=== PATIENT | female | born 1955 | race Caucasian/White ===

== ENCOUNTER 2020-08-26 09:47 | Day surgery (SDC) | payer MEDICARE ==
[2020-08-23 11:29] VITALS: BMI 34.2
--- NOTE | 2020-08-25 22:50 | HP ---
HISTORY AND PHYSICAL CHIEF COMPLAINT: Sjogren's syndrome. HISTORY OF PRESENT ILLNESS: This patient is a 64-year-old female who was recently seen in my office complaining of having dry eyes, dry mouth, and dry mucous membranes in her nose. The patient states that in the past she has been diagnosed as having Sjogren's syndrome by one physician, however, another physician told her that she did have this disease. She has not had any testing for this. I suggested to her that a lip biopsy could be done to confirm whether or not she has Sjogren syndrome and she decided to proceed with this. PAST MEDICAL HISTORY: Past medical history reveals that she has allergies to PENICILLIN and to ASPIRIN. Current medications include Effexor, Flexeril, Restasis, Synthroid, cevimeline, simvastatin, Zyrtec and Vicodin. REVIEW OF SYSTEMS: Cardiovascular is negative. Respiratory is negative. Gastrointestinal is positive for GERD, gastroesophageal reflux disorder. Metabolic endocrine is positive for hypothyroidism and hypercholesterolemia. Musculoskeletal system is positive for osteoarthritis and fibromyalgia. The remainder of the review of systems is unremarkable. PREVIOUS SURGERIES: Previous surgeries include an appendectomy, bilateral cataract surgery, skin cancer on the left waist. She is 2 para, 2 , 0 , 0 miscarriage. She has also had arthroscopic surgery on the left knee. PHYSICAL EXAMINATION: This patient is a pleasant 64-year-old female who is alert and cooperative. HEENT EXAMINATION: Patient is normocephalic. Tympanic membranes are normal. Middle ear space is free of any fluid or infection. Pupils equal, round, react to light and accommodation. Extraocular movements within normal limits. Intranasal examination reveals moderate septal deviation with a very slight amount of mucus on the mucous membrane draining down the posterior pharynx and oropharynx reveals the mucous membranes appear to be quite dry. Cranial nerves 2 through 12 and the remainder of the head and neck exam is unremarkable. CHEST/CARDIOVASCULAR: Both lung obando are clear to percussion and auscultation. Patient is in regular sinus rhythm. S1, S2 are present without any murmurs, S3s or S4s. Peripheral pulses are bilaterally symmetrical and within normal limits. ABDOMEN: There is no evidence any masses, megaly or tenderness. The abdomen is soft. Skin is unremarkable. Musculoskeletal and neurological are within normal limits. RECTAL EXAM: The rectal exam is deferred at this time because the patient has this done on a regular basis at her family physician's office. The remainder of physical exam is unremarkable. IMPRESSION: Sjogren's syndrome. PLAN: The patient is scheduled to undergo a lip biopsy under general anesthesia or IV sedation with MAC? in the a.m. ATTENTION RNS IN THE PRE-SURGICAL AREA: I have not ordered any pre-surgical prophylactic antibiotics for this patient. If the pharmacy department sends any pre- surgical prophylactic antibiotics to the pre-surgical area for this patient, please return that medication to the pharmacy, cancel that order, and make sure that the patient's account is credited appropriately. I have discussed the risks, benefits and alternative therapies for the above-mentioned procedure and for both sedation/analgesia as well as necessary blood product administration, if indicated, as they pertain to this patient. The patient has indicated his or her understanding and acceptance of the risks and procedures discussed. MMJEANNIE / TAMMIEN: [id number] /
[~2020-08-26 09:47] MED LIST: DEXAMETHASONE SOD PHOSPHATE 10 MG/ML 1 ML VIAL IV ONE; LACTATED RINGERS 1,000 ML IV SCH; LIDOCAINE 1% (10MG/ML) FOR IV START INTRADERMA PRN; MIDAZOLAM 2 MG/2 ML VIAL IV PRN; ONDANSETRON 4 MG/2 ML VIAL IVP ONE; Pre Op ABX Message 1 EACH MISC MISCELLANE ONE
[2020-08-26] MEDS ORDERED: fentaNYL (PF) 50 MCG/ML 2 ML AMP ONE (11:32)
[2020-08-26] MEDS ORDERED: DEXAMETHASONE SOD PHOSPHATE 10 MG/ML 1 ML VIAL ONE (11:32)
[2020-08-26] MEDS ORDERED: SUCCINYLCHOLINE CHLORIDE 100 MG/5 ML SYR IV ONE (11:32)
[2020-08-26] MEDS ORDERED: PROPOFOL 10 MG/ML 20 ML VIAL IV ONE (11:32)
[2020-08-26] MEDS ORDERED: MIDAZOLAM 2 MG/2 ML VIAL ONE (11:32)
[2020-08-26 12:43] VITALS: TEMP 97.1
[2020-08-26 12:50] VITALS: RESP 16
[2020-08-26] MEDS: HYDROmorphone 0.5 MG/0.5 ML SYRINGE IVP PRN ×2 (13:00→13:12)
[2020-08-26] MEDS ORDERED: LACTATED RINGERS 1,000 ML IV ONE (13:28)
[2020-08-26] MEDS ORDERED: HYDROcodone/APAP 10-325MG 1 EACH TAB PO ONE (13:50)
[2020-08-26 14:23] VITALS: BP 142/84; PULSE 100
--- NOTE | 2020-08-26 22:42 | OP ---
OPERATIVE REPORT DATE OF SURGERY: 08/26/2020 PREOPERATIVE DIAGNOSIS: Sjogren's syndrome. POSTOPERATIVE DIAGNOSIS: Sjogren's syndrome. Final pathology pending. ANESTHESIA: General. OPERATIVE PROCEDURE: Deep lower lip biopsy OPERATING SURGEON: Dr. Nico Hogue. COMPLICATIONS: None. OPERATIVE PROCEDURE DESCRIPTION: The patient was placed on the operating table in supine position, and after uneventful induction endotracheal intubation, satisfactory general anesthesia was obtained. Next, the patient's lower lip was inspected. The area to be biopsied was located in a region just lateral to the midline of the lower lip. Next, using a #15 scalpel, an incision was made in an elliptical fashion going through mucous membrane, subcutaneous tissue down to the level of the muscular layer. This strip of tissue was then excised completely and sent to Pathology in formalin. Several remnant pieces of this strip were still located in the wound defect, and these were excised by sharp dissection and sent along with the main pathology specimen. Hemostasis was obtained using a combination of 4-0 ties and electrocautery. The wound defect was closed in a single layer using a combination of 4-0 rapid-absorbing Vicryl in interrupted buried fashion along with 4-0 chromic suture in an interrupted buried fashion. No local anesthesia was used to reduce risk of the patient accidentally biting her lower lip. Estimated blood loss was less than 1 mL. At this point the procedure was terminated. The patient tolerated the procedure well and was returned to the recovery room in satisfactory condition. Final pathology is pending. MMODL / IJN: [id number] /
== END 2020-08-26 14:27 | disposition home or self-care (01) ==
LOC: OR 09:47
PROVIDERS: ATTEND Otolaryngology
DX: M35.00 Sjogren syndrome, unspecified (principal); K21.9 Gastro-esophageal reflux disease without esophagitis; E03.9 Hypothyroidism, unspecified; E78.00 Pure hypercholesterolemia, unspecified; M19.90 Unspecified osteoarthritis, unspecified site; M79.7 Fibromyalgia; E78.5 Hyperlipidemia, unspecified; F41.9 Anxiety disorder, unspecified; F32.9 Major depressive disorder, single episode, unspecified; M81.0 Age-related osteoporosis without current pathological fracture; Z88.0 Allergy status to penicillin; Z88.6 Allergy status to analgesic agent; Z91.09 Other allergy status, other than to drugs and biological substances; Z91.012 Allergy to eggs; Z79.899 Other long term (current) drug therapy; Z79.890 Hormone replacement therapy; Z79.891 Long term (current) use of opiate analgesic; Z90.49 Acquired absence of other specified parts of digestive tract; Z98.41 Cataract extraction status, right eye; Z98.42 Cataract extraction status, left eye; Z85.828 Personal history of other malignant neoplasm of skin; Z98.890 Other specified postprocedural states
CPT/HCPCS: 88305; 40490; J2250; J1100; J2405; J3010; J0330; J2704; J1170

== ENCOUNTER → 2020-08-27 | Outpatient (CLI) | payer MEDICARE ==
[~2020-08-27] MED LIST changes: -DEXAMETHASONE SOD PHOSPHATE 10 MG/ML 1 ML VIAL IV ONE; +HYDROcodone/APAP 10-325MG 1 EACH TAB ONE; -LACTATED RINGERS 1,000 ML IV SCH; -LIDOCAINE 1% (10MG/ML) FOR IV START INTRADERMA PRN; -MIDAZOLAM 2 MG/2 ML VIAL IV PRN; -ONDANSETRON 4 MG/2 ML VIAL IVP ONE; -Pre Op ABX Message 1 EACH MISC MISCELLANE ONE
--- NOTE | 2020-08-27 11:49 | FL ---
EXAMINATION TYPE: FL barium swallow w video DATE OF EXAM: 08/27/2020 COMPARISON: NONE HISTORY: Aspiration, horse voice TECHNIQUE: Fluoroscopy. FINDINGS: Fluoroscopic guidance was provided for the procedure performed in conjunction with the [facility] pathology department. Please see complete report forthcoming from the Speech Pathology departmen t. Various consistencies from thin liquid to solids were administered. Fluoroscopy time 55 seconds. Number of images: 0. No aspiration or penetration was evident. No significant pooling was observed in the vallecula. There was normal propulsion of the bolus. IMPRESSION: 1. Normal modified barium swallow.
== END | disposition home or self-care (01) ==
LOC: RADFLMAIN 10:53
PROVIDERS: ATTEND Otolaryngology
DX: R05 Cough (principal); T17.810A Gastric contents in other parts of respiratory tract causing asphyxiation, initial encounter; Z88.0 Allergy status to penicillin; Z88.6 Allergy status to analgesic agent
CPT/HCPCS: 74230

== ENCOUNTER 2022-04-13 07:32 | Day surgery (SDC) | payer MEDICARE ==
[~2022-04-13 07:32] MED LIST changes: +ACETAMINOPHEN TAB 500 MG TAB PO PRN; +DEXAMETHASONE SOD PHOSPHATE 4 MG/ML 1 ML VIAL IV ONE; +HEPARIN SODIUM,PORCINE/PF 5,000 UNIT/0.5 ML SYRINGE SQ PRN; -HYDROcodone/APAP 10-325MG 1 EACH TAB ONE; +LIDOCAINE 1% (10MG/ML) FOR IV START INTRADERMA PRN; +ONDANSETRON 4 MG/2 ML VIAL IVP ONE
--- NOTE | 2022-04-13 08:04 | P.GSHP ---
History of Present Illness H&P Date: 04/13/22 Chief Complaint: Chronic cholecystitis 66-year-old female seen in early February. Patient with complaints of epigastric and chest pain. Some radiation to the back. Seems to be aggravated by certain foods. Ultrasound shows sludge. Recent cardiac workup negative. Past Medical History Past Medical History: Cancer, Fibromyalgia, Hyperlipidemia, Osteoarthritis (OA), Thyroid Disorder Additional Past Medical History / Comment(s): sjogrens, osteoporosis, hx skin cancer History of Any Multi-Drug Resistant Organisms: None Reported Past Surgical History: Appendectomy, Hysterectomy, Orthopedic Surgery Additional Past Surgical History / Comment(s): arthroscopy left knee , skin cancer removed from abdomen, D&C, Hemorrhoidectomy, uday cataracts Past Anesthesia/Blood Transfusion Reactions: No Reported Reaction Past Psychological History: Anxiety, Depression Smoking Status: Former smoker Past Alcohol Use History: None Reported Additional Past Alcohol Use History / Comment(s): smoked for 5 yrs , quit smoking age 23 Past Drug Use History: None Reported Additional Drug Use History / Comment(s): CBD topically - Past Family History Mother Family Medical History: Cancer Medications and Allergies Home Medications Medication Instructions Recorded Confirmed Type Cevimeline HCl [Evoxac] 30 mg PO BID 05/17/14 04/09/22 History Cyclobenzaprine [Flexeril] 10 mg PO HS 05/17/14 04/09/22 History Fexofenadine HCl [Sonya Allergy] 180 mg PO DAILY 05/17/14 04/09/22 History cycloSPORINE [Restasis] 1 applicator BOTH EYES BID 05/17/14 04/09/22 History Meclizine [Antivert] 25 mg PO TID PRN 08/23/20 04/09/22 History Simvastatin [Zocor] 40 mg PO HS 08/23/20 04/09/22 History Cholecalciferol [Vitamin D3 (25 50 mcg PO BID 12/18/21 04/09/22 History Mcg = 1000 Iu)] Multivitamins, Thera [Multivitamin 1 tab PO DAILY 12/18/21 04/09/22 History (formulary)] Venlafaxine HCl ER [Effexor Xr] 150 mg PO BID 12/18/21 04/09/22 History Levothyroxine Sodium 125 mcg PO HS 04/09/22 04/09/22 History Allergies Allergy/AdvReac Type Severity Reaction Status Date / Time adhesive tape AdvReac Rash/Hives Verified 04/09/22 14:08 aspirin AdvReac Abdominal Verified 04/09/22 14:08 Pain egg AdvReac Abdominal Verified 04/09/22 14:08 Pain Penicillins AdvReac Swelling Verified 04/09/22 14:08 Surgical - Exam Vital Signs Temp Pulse Resp BP Pulse Ox 97.2 F L 82 16 122/69 93 L 04/13/22 07:50 04/13/22 07:50 04/13/22 07:50 04/13/22 07:50 04/13/22 07:50 Physical exam: General: Well-developed, well-nourished HEENT: Normocephalic, sclerae nonicteric Abdomen: Nontender, nondistended Extremities: No edema Neuro: Alert and oriented Assessment and Plan (1) Chronic cholecystitis Narrative/Plan: Female with chronic cholecystitis. We'll proceed with laparoscopic, possible open cholecystectomy at this time. Risks of bleeding, infection, bile leak, bile duct injury, retained common bile duct stone, trocar injury, conversion to an open procedure, hernia, anesthesia related complications were reviewed. The patient understands and wishes to proceed. Current Visit: Yes Status: Acute Code(s): K81.1 - CHRONIC CHOLECYSTITIS SNOMED Code(s): 84791784
[2022-04-13 08:15] LABS: Basophils # (A) 0.1 k/uL (0-0.2); Basophils % (A) 1 %; Eosinophils # (A) 0.3 k/uL (0-0.7); Eosinophils % (A) 3 %; HCT 43.7 % (34.0-46.0); HGB 13.9 gm/dL (11.4-16.0); Lymphocytes # (A) 1.8 k/uL (1.0-4.8); Lymphocytes % (A) 23 %; MCH 28.8 pg (25.0-35.0); MCHC 31.9 g/dL (31.0-37.0); MCV 90.3 fL (80.0-100.0); Mean Platelet Volume 7.4; Monocytes # (A) 0.4 k/uL (0-1.0); Monocytes % (A) 5 %; Neutrophils # (A) 5.1 k/uL (1.3-7.7); Neutrophils % (A) 65 %; Platelet Count 308 k/uL (150-450); RBC 4.84 m/uL (3.80-5.40); RDW 13.5 % (11.5-15.5); WBC 7.9 k/uL (3.8-10.6)
[2022-04-13] MEDS: LACTATED RINGERS 1,000 ML IV SCH ×2 (08:17→11:04)
[2022-04-13 08:34] LABS: ALT 23 U/L (4-34); AST 29 U/L (14-36); African American GFR (CKD) >90 (>60 ml/min/1.73 sqM); Albumin 4.3 g/dL (3.5-5.0); Alkaline Phosphatase 60 U/L (38-126); Anion Gap 9 mmol/L; Blood Urea Nitrogen 14 mg/dL (7-17); Calcium 9.1 mg/dL (8.4-10.2); Carbon Dioxide 26 mmol/L (22-30); Chloride 106 mmol/L (98-107); Glucose 116 mg/dL (74-99); Non-African American GFR(CKD) 78 (>60 ml/min/1.73 sqM); Sodium 141 mmol/L (137-145); Total Bilirubin 0.6 mg/dL (0.2-1.3); Total Protein 6.8 g/dL (6.3-8.2)
[2022-04-13] MEDS ORDERED: GLYCOPYRROLATE 0.2 MG/ML 2 ML VIAL ONE (09:05)
[2022-04-13] MEDS ORDERED: SUGAMMADEX SODIUM 200 MG/2 ML SDV IV ONE (09:05)
[2022-04-13] MEDS ORDERED: LIDOCAINE 2% INJ 20 MG/ML (2 ML VIAL) ONE (09:05)
[2022-04-13] MEDS ORDERED: SUCCINYLCHOLINE CHLORIDE 100 MG/5 ML SYR IV ONE (09:05)
[2022-04-13] MEDS ORDERED: PROPOFOL 10 MG/ML 20 ML VIAL IV ONE (09:05)
[2022-04-13] MEDS ORDERED: MIDAZOLAM 2 MG/2 ML VIAL ONE (09:05)
[2022-04-13] MEDS ORDERED: NEOSTIGMINE 1 MG/ML 10 ML VIAL ONE (09:05)
[2022-04-13] MEDS ORDERED: ROCURONIUM 10 MG/ML (5 ML VIAL) IV ONE (09:05)
[2022-04-13] MEDS ORDERED: fentaNYL (PF) 50 MCG/ML 2 ML AMP ONE (09:05)
[2022-04-13] MEDS ORDERED: KETOROLAC 15 MG/ML 1 ML VIAL ONE (09:05)
[2022-04-13] MEDS ORDERED: BUPIVACAINE (PF) 0.25% 30 ML VIAL SQ ONE (09:28)
--- NOTE | 2022-04-13 10:10 | P.OP ---
Date of Procedure: 04/13/22 Procedure(s) Performed: PREOPERATIVE DIAGNOSIS: Chronic cholecystitis POSTOPERATIVE DIAGNOSIS: Same PROCEDURE: Laparoscopic cholecystectomy SURGEON: Lovely EBL: Minimal see anesthesia record ANESTHESIA: Gen. COMPLICATIONS: None OPERATIVE PROCEDURE: The patient was brought and placed on the operating room table in the supine position. The patient was placed under general anesthesia at that time. The abdomen was prepped and draped in the usual sterile fashion. A small vertical infraumbilical incision was made. The fascia was grasped with the Juancarlos forceps. The fascia was retracted anteriorly. The Veress needle was advanced into the peritoneal cavity. The saline drop test was normal. Insufflation took place up to 15 mmHg. A 5 mm optical trocar was advanced and the peritoneal cavity. As soon as I advanced the trocar no distress that there was some adhesions that we had gone through. I was able to navigate a window with the camera to visualize the upper abdomen that was free of adhesions. 2 additional 5 mm trochars were placed in the right upper quadrant under direct visualization. A 12 mm trocar was advanced into the epigastric incision site. I then advanced the camera into the 12 mm trocar and was able to visualize the umbilical region. There were adhesions extending just above the umbilicus. The etiology was unclear. The trocar appeared to have gone through some of the omentum. There was no bowel seen in the vicinity. I was able to remove that trocar and changed the angle in order to avoid all of these adhesions throughout her same umbilical incision site. The gallbladder was retracted superiorly and laterally. The peritoneum overlying the infundibulum was bluntly dissected. The patient's cystic duct was visualized. The junction between the cystic duct common and hepatic duct was identified. The critical view of safety was achieved after blunt dissection. The cystic duct was then divided after placement of 3 12 mm clips on the patient's side and one on the specimen side. The cystic artery was identified and clipped as well. A small vessel was seen along the gallbladder fossa and clipped as well. The gallbladder was then removed from the liver bed using electrocautery. The gallbladder was then removed from the epigastric trocar site with an Endo Catch bag. The gallbladder fossa was irrigated with saline. There was no evidence of any bleeding or biliary drainage seen. The fascia at the 12 millimeter site was closed using a Joe-Arianne 0 Vicryl stitch. The trochars were then removed. The skin at all 4 sites was closed using a 3-0 Monocryl stitch. Skin glue was utilized on the incision sites. At the end of this procedure the sponge and needle counts were correct. DISPOSITION: Stable to the recovery room
[2022-04-13 10:26] VITALS: TEMP 98
[2022-04-13] MEDS: HYDROmorphone 0.5 MG/0.5 ML SYRINGE IVP PRN ×3 (10:45→11:04)
[2022-04-13 11:04] VITALS: RESP 18
[2022-04-13 11:39] VITALS: BP 120/75; PULSE 86
[2022-04-13] MEDS ORDERED: ACETAMINOPHEN TAB 325 MG TAB PO SCH (12:00)
== END 2022-04-13 12:34 | disposition home or self-care (01) ==
LOC: OR 07:32
PROVIDERS: ATTEND Surgery
DX: K81.1 Chronic cholecystitis (principal); M35.00 Sjogren syndrome, unspecified; M79.7 Fibromyalgia; E78.5 Hyperlipidemia, unspecified; M19.90 Unspecified osteoarthritis, unspecified site; E07.9 Disorder of thyroid, unspecified; M81.0 Age-related osteoporosis without current pathological fracture; F41.9 Anxiety disorder, unspecified; F32.A Depression, unspecified; E11.9 Type 2 diabetes mellitus without complications; K62.3 Rectal prolapse; Z79.890 Hormone replacement therapy; Z79.899 Other long term (current) drug therapy; Z88.0 Allergy status to penicillin; Z88.6 Allergy status to analgesic agent; Z91.012 Allergy to eggs; Z91.09 Other allergy status, other than to drugs and biological substances; Z85.828 Personal history of other malignant neoplasm of skin; Z87.891 Personal history of nicotine dependence; Z90.49 Acquired absence of other specified parts of digestive tract; Z90.710 Acquired absence of both cervix and uterus; Z98.890 Other specified postprocedural states; Z98.42 Cataract extraction status, left eye; Z98.41 Cataract extraction status, right eye
CPT/HCPCS: 88304; 80053; 85025; 47562; J2250; J1100; J2710; J0690; J2405; J3010; J1885; J0330; J2704; J1170; J1644; J2001

== ENCOUNTER → 2025-02-16 | Outpatient (CLI) | payer MEDICARE ==
--- NOTE | 2025-02-18 18:07 | BD ---
EXAMINATION TYPE: Axial Bone Density DATE OF EXAM: 02/16/2025 CLINICAL HISTORY: 69 years old Female. ICD-10 CODE: M810 KNOWN OSTEO , Additional History: Height: 60 Weight: 194 FRAX RISK QUESTIONS: Alcohol (3 or more units per day): no Family History (Parent hip fracture): no History of Fracture in Adulthood: no Secondary Osteoporosis: yes 3. Menopause before 45: yes RISK FACTORS HISTORY OF: Surgery to Spine/Hip(right/left)/Wrist (right/left): no MEDICATIONS: Thyroid Medications: yes Which medication: Synthroid How Lon+ years Osteoporosis Medications: no EXAM MEASUREMENTS: Bone mineral densitometry was performed using the [employer] System. Bone mineral density as measured about the Lumbar spine is: ----- L1-L4(G/cm2): 0.848 T Score Values are as follows: ----- L1: -1.9 ----- L2: -3.2 ----- L3: -3.3 ----- L4: -2.8 ----- L1-L4: -2.8 Z Score Values are as follows: ----- L1: -1.0 ----- L2: -2.3 ----- L3: -2.4 ----- L4: -1.9 ----- L1-L4: -1.9 Bone mineral density baseline Bone mineral density about the R hip (g/cm2): 0.820 Bone mineral density about the L hip (g/cm2): 0.845 T Score values are as follows: -----R Neck: -2.6 -----L Neck: -2.2 -----R Total: -1.5 -----L Total: -1.3 Z Score values are as follows: -----R Neck: -1.4 -----L Neck: -1.0 -----R Total: -0.6 -----L Total: -0.4 Bone mineral density baseline FRAX%s: The graph provided illustrates a 14.0% chance for a major osteoporotic fx and a 3.6% chance f or the hips probability for fx in 10 years time. IMPRESSION: Osteopenia (T Score between -2.5 and -1). There is slightly increased risk of fracture and the patient may be considered for treatment. Re-Screen 2-5 years. NOTE: T-SCORE=SD OF THE YOUNG ADULT MEAN. [facility], , 02/18/2025 6:05 PM
--- NOTE | 2025-02-19 07:20 | MM ---
Reason for Exam: Screening (asymptomatic). Last mammogram was performed 27 year(s) and 6 month(s) ago. Patient History: Menarche at age 11. First Full-Term at age 24. Left ovary removed at age 36. Right ovary removed at age 36. Hysterectomy at age 36. Postmenopausal. Maternal aunt had breast cancer, age 50. Niece had breast cancer, age 35. Sister had breast cancer, age 55. Risk Values: Emma 5 year model risk: 3.4%. NCI Lifetime model risk: 9.7%. Prior Study Comparison: 08/09/1997 Bilateral Special View Mammogram, [facility]. Tissue Density: The breasts are heterogeneously dense, which may obscure small masses. Findings: Analyzed By CAD. There is no suspicious group of microcalcifications or new suspicious mass in either breast. Overall Assessment: Benign, BI-RAD 2 Management: Screening Mammogram of both breasts in 1 year. . Patient should continue monthly self-breast exams. A clinical breast exam by your physician is recommended on an annual basis. This exam should not preclude additional follow-up of suspicious palpable abnormalities. Note on Emma scores and lifetime risk: 1. A Emma score greater than 3% is considered moderate risk. If this is the case, consider specialist referral to assess eligibility for a risk reducing agent. 2. If overall lifetime risk for the development of breast cancer is 20% or higher, the patient may qualify for future screening with alternating mammogram and breast MRI. [facility], , 02/19/2025 7:17 AM. Electronically signed and approved by: Amado Farooq M.D. Radiologis
== END | disposition home or self-care (01) ==
LOC: RADBDWWP 15:39
PROVIDERS: ATTEND Family Medicine
DX: Z12.31 Encounter for screening mammogram for malignant neoplasm of breast (principal); R92.333 Mammographic heterogeneous density, bilateral breasts; M81.0 Age-related osteoporosis without current pathological fracture; M85.89 Other specified disorders of bone density and structure, multiple sites; Z80.3 Family history of malignant neoplasm of breast; Z78.0 Asymptomatic menopausal state
CPT/HCPCS: 77063; 77067; 77080

== ENCOUNTER → 2025-03-27 | Outpatient (CLI) | payer MEDICARE ==
--- NOTE | 2025-03-27 15:02 | CT ---
EXAMINATION TYPE: CT sinus wo con DATE OF EXAM: 03/27/2025 COMPARISON: None CLINICAL INDICATION: Female, 69 years old with history of J32.0 CHRONIC MAXILLARY SINUSITIS; PHH, chr onic sinus congestion, drainage, pressure, and fogginess TECHNIQUE: CT scan of the sinuses is performed without contrast, axial images are obtained, coronal r eformatted images are also reviewed. CT DLP: [address] CTDI: mGy Automated exposure control for dose reduction was used. FINDINGS: The paranasal sinuses including the frontal, ethmoid, sphenoid, and maxillary sinuses bilaterally are well-aerated without abnormal opacification. The ostiomeatal complex is patent bilaterally on the c oronal images. There is a small mucous retention cyst or polyp in the left maxillary sinus. Visualized portion of mastoid air cells show no abnormal opacification. The globes are intact bilate rally. There is mild deviation of nasal septum to the right. The nasal turbinates are normal. IMPRESSION: Small mucous retention cyst or polyp in the left maxillary sinus indicating mild chronic sinusitis. N o other significant abnormality seen. [facility], , 03/27/2025 2:59 PM
[2025-03-27 20:44] LABS: Immunoglobulin E 6.51 IU/mL (0.00-114.00)
[2025-03-28 01:14] LABS: Alternaria alternata IgE <0.10 kU/L; Aspergillus fumagatus IgE <0.10 kU/L; Birch IgE <0.10 kU/L; Cat Epith & Dander IgE <0.10 kU/L; Cladosporian herbarum IgE <0.10 kU/L; Cockroach IgE <0.10 kU/L; Dermato. farinae IgE <0.10 kU/L; Dog Dander IgE <0.10 kU/L; Maple (Box Elder) IgE <0.10 kU/L; Oak IgE <0.10 kU/L; Ragweed,Common IgE <0.10 kU/L
[2025-03-28 13:22] LABS: Aureo. pullulans IgE <0.10 kU/L (<0.10); Aureo. pullulans IgE Class CLASS 0; Candida albicans IgE Class CLASS 0; Com. Pigweed IgE <0.10 kU/L (<0.10); Com. Pigweed IgE Class CLASS 0; Cottonwood IgE <0.10 kU/L (<0.10); English Plantain IgE Class CLASS 0; Epicoccum purpurascens Class CLASS 0; Epicoccum purpurascens IgE <0.10 kU/L (<0.10); Johnson Grass IgE Class CLASS 0; Lamb's Quarter IgE <0.10 kU/L (<0.10); Lamb's Quarter IgE Class CLASS 0; Mucor racemosus IgE <0.10 kU/L (<0.10); Mucor racemosus IgE Class CLASS 0; Rhizopus nigricans IgE <0.10 kU/L (<0.10); Rhizopus nigricans IgE Class CLASS 0; S.rostrata/Helminth Class CLASS 0; S.rostrata/Helminth IgE <0.10 kU/L (<0.10); Sycamore(Mpl.Lf) IgE <0.10 kU/L (<0.10); Sycamore(Mpl.Lf) IgE Class CLASS 0; Timothy Grass IgE <0.10 kU/L (<0.10); Timothy Grass IgE Class CLASS 0; Walnut Tree IgE <0.10 kU/L (<0.10); Walnut Tree IgE Class CLASS 0; White Ash IgE Class CLASS 0
== END | disposition home or self-care (01) ==
LOC: RADCTMAIN 14:31
PROVIDERS: ATTEND Otolaryngology
DX: J32.0 Chronic maxillary sinusitis (principal)
CPT/HCPCS: 70486; 82785; 86003